=== PATIENT | female | born 1955 | race Caucasian/White ===

== ENCOUNTER 2021-08-10 15:01 | Emergency (ER) | payer OTHER ==
[~2021-08-10] VITALS: Ht 162.6 cm; Wt 65.8 kg
[2021-08-10 16:40] VITALS: BP_SYST 118
--- NOTE | 2021-08-10 20:55 | NUR ---
Patient left without being seen. ER MD aware
== END 2021-08-10 20:55 | disposition left against medical advice (07) ==
LOC: SED 15:01
DX: S09.90XA Unspecified injury of head, initial encounter (principal); Z53.21 Procedure and treatment not carried out due to patient leaving prior to being seen by health care provider; W18.30XA Fall on same level, unspecified, initial encounter; Y93.89 Activity, other specified; Y92.89 Other specified places as the place of occurrence of the external cause; Y99.8 Other external cause status